=== PATIENT | female | born 1975 | race Caucasian/White ===

== ENCOUNTER → 2017-06-05 | Outpatient (CLI) | payer OTHER ==
[~2017-06-05] MED LIST: DIVA500T2 PO; LACO200T; LEVE100020 PO
[2017-06-05 07:43] LABS: ALBUMIN 4.3 g/dL (3.4-5.0); ANION GAP 7 mmol/L (5-15); BASOPHILS # (AUTO) 0.05 x10^3/uL (0-0.1); BASOPHILS % (AUTO) 2 % (0-1); CALCIUM 8.8 mg/dL (8.5-10.1); CHLORIDE 109 mmol/L (98-107); EOSINOPHILS # (AUTO) 0.08 x10^3/uL (0-0.4); EOSINOPHILS % (AUTO) 3 % (1-7); LYMPHOCYTES # (AUTO) 1.19 x10^3/uL (1-3.4); LYMPHOCYTES % (AUTO) 38 % (22-44); MD NO; MEAN CORPUSCULAR HGB CONC 32.1 g/dL (32.4-35.8); MEAN PLATELET VOLUME 7.9 fL (7.4-10.4); MONOCYTES # (AUTO) 0.19 x10^3/uL (0.2-0.8); MONOCYTES % (AUTO) 6 % (2-9); NEUTROPHILS # (AUTO) 1.62 x10^3/uL (1.8-6.8); NEUTROPHILS % (AUTO) 52 % (42-75); PLATELET COUNT 300 x10^3/uL (130-400); RED BLOOD COUNT 4.03 x10^6/uL (3.82-5.3)
[2017-06-05 07:48] LABS: ALANINE AMINOTRANSFERASE 25 U/L (12-78); ALKALINE PHOSPHATASE 44 U/L (45-117); BILIRUBIN,TOTAL 0.3 mg/dL (0.2-1.0); CHOL/HDL RATIO 2.2; CHOLESTEROL, TOTAL 202 mg/dL (140-239); CREATININE 0.99 mg/dL (0.55-1.02); HDL CHOL % 45 % (28-40); HDL CHOLESTEROL (DIRECT) 90 mg/dL (40-60); LDL CHOLESTEROL,CALCULATED 104 mg/dL (54-169); LDL/HDL RATIO 1.2 (0.5-3.0); TOTAL PROTEIN 7.5 g/dL (6.4-8.2); TRIGLYCERIDES 40 mg/dL (50-200); VLDL CHOLESTEROL 8 mg/dL (0-25)
[2017-06-05 10:10] LABS: HEMOGLOBIN A1C 5.5 % (4.2-6.3)
== END | disposition home or self-care (01) ==
LOC: LAB 07:12
PROVIDERS: ATTEND Nurse Practitioner
DX: Z13.220 Encounter for screening for lipoid disorders (principal); E07.9 Disorder of thyroid, unspecified; R79.9 Abnormal finding of blood chemistry, unspecified
CPT/HCPCS: 36415; 80053; 80061; 82306; 83036; 85025

== ENCOUNTER → 2017-07-20 | Outpatient (CLI) | payer OTHER ==
[2017-07-20 07:59] LABS: BASOPHILS # (AUTO) 0.06 x10^3/uL (0-0.1); BASOPHILS % (AUTO) 2 % (0-1); EOSINOPHILS # (AUTO) 0.11 x10^3/uL (0-0.4); EOSINOPHILS % (AUTO) 3 % (1-7); LYMPHOCYTES # (AUTO) 1.48 x10^3/uL (1-3.4); LYMPHOCYTES % (AUTO) 41 % (22-44); MD NO; MEAN CORPUSCULAR HEMOGLOBIN 25.9 pg (27.0-34.8); MEAN CORPUSCULAR HGB CONC 31.9 g/dL (32.4-35.8); MEAN CORPUSCULAR VOLUME 81.1 fL (80-100); MEAN PLATELET VOLUME 8.1 fL (7.4-10.4); MONOCYTES # (AUTO) 0.32 x10^3/uL (0.2-0.8); MONOCYTES % (AUTO) 9 % (2-9); NEUTROPHILS # (AUTO) 1.67 x10^3/uL (1.8-6.8); NEUTROPHILS % (AUTO) 46 % (42-75); PLATELET COUNT 316 x10^3/uL (130-400); RED CELL DISTRIBUTION WIDTH 16.6 % (9.6-15.2)
[2017-07-20 08:02] LABS: % IRON SATURATION 12 % (20-55); IRON LEVEL 55 mcg/dL (50-170); TOTAL IRON BINDING CAPACITY 455 mcg/dL (250-450)
== END | disposition home or self-care (01) ==
LOC: LAB 07:16
PROVIDERS: ATTEND Internal Medicine
DX: D64.9 Anemia, unspecified (principal)
CPT/HCPCS: 36415; 82728; 83540; 83550; 85025

== ENCOUNTER → 2017-07-22 | Outpatient (CLI) | payer OTHER | END | disposition home or self-care (01) | LOC: CFH 13:50 | PROVIDERS: ATTEND Obstetrics & Gynecology Maternal & Fetal Medicine | DX: Z12.31 Encounter for screening mammogram for malignant neoplasm of breast (principal) | CPT/HCPCS: 77063; 77067 ==

== ENCOUNTER 2017-07-28 09:24 | Observation (INO) | payer OTHER ==
[~2017-07-28] VITALS: Ht 165.1 cm; Wt 75.9 kg
[2017-07-28 10:03] LABS: BASOPHILS # (AUTO) 0.06 x10^3/uL (0-0.1); BASOPHILS % (AUTO) 1 % (0-1); EOSINOPHILS # (AUTO) 0.09 x10^3/uL (0-0.4); EOSINOPHILS % (AUTO) 2 % (1-7); LYMPHOCYTES # (AUTO) 1.46 x10^3/uL (1-3.4); LYMPHOCYTES % (AUTO) 32 % (22-44); MD NO; MEAN CORPUSCULAR HEMOGLOBIN 25.9 pg (27.0-34.8); MEAN CORPUSCULAR HGB CONC 31.6 g/dL (32.4-35.8); MEAN CORPUSCULAR VOLUME 81.9 fL (80-100); MONOCYTES # (AUTO) 0.25 x10^3/uL (0.2-0.8); MONOCYTES % (AUTO) 6 % (2-9); NEUTROPHILS # (AUTO) 2.65 x10^3/uL (1.8-6.8); NEUTROPHILS % (AUTO) 59 % (42-75); PLATELET COUNT 311 x10^3/uL (130-400); RED BLOOD COUNT 4.43 x10^6/uL (3.82-5.3); RED CELL DISTRIBUTION WIDTH 16.2 % (9.6-15.2)
[2017-07-28 10:07] LABS: INTERNATIONAL NORMALIZED RATIO 1.06 (0.93-1.1); PROTHROMBIN TIME 10.9 Seconds (9.6-11.5)
[2017-07-28] MEDS ORDERED: ASPIRIN 81 MG TABLET EC ONE (10:17)
[2017-07-28] MEDS ORDERED: ASPIRIN 81 MG TABLET CHEW ONE (10:18)
[2017-07-28] MEDS ORDERED: LEVE100020 PO (10:24)
[2017-07-28] MEDS ORDERED: DULO20CA45 PO (10:24)
[2017-07-28] MEDS ORDERED: ZONI100C2 PO ×2 (10:24)
[2017-07-28] MEDS ORDERED: BUSP5TAB2 PO (10:24)
[2017-07-28] MEDS ORDERED: LAMO100T5 PO ×3 (10:24)
[2017-07-28] MEDS ORDERED: CLOB10TA PO (10:24)
[2017-07-28] MEDS ORDERED: ASPIRIN 325 MG TABLET EC PO ONE (10:30)
[2017-07-28] MEDS ORDERED: LORazepam 2 MG/ML, 1ML IVPush PRN (12:30)
[2017-07-28] MEDS ORDERED: ACETAMINOPHEN 325 MG TABLET PO PRN (12:30)
[2017-07-28] MEDS ORDERED: ENOXAPARIN 40 MG/0.4 ML SQ SCH (12:30)
[2017-07-28] MEDS ORDERED: ONDANSETRON 2MG/ML, 2ML IVPush PRN (12:30)
[2017-07-28] MEDS ORDERED: ENOXAPARIN 40 MG/0.4 ML ONE (12:37)
[2017-07-28] MEDS: SODIUM CHLORIDE 0.9% 1,000 ML IV SCH (12:57)
[2017-07-28 14:48] VITALS: BP 125/83
[2017-07-28] MEDS ORDERED: ZONISAMIDE 50 MG CAPSULE PO SCH ×2 (15:00→21:00)
[2017-07-28] MEDS ORDERED: LAMOTRIGINE 100 MG TABLET PO SCH ×2 (16:00→21:00)
[2017-07-28 19:48] VITALS: BP 107/66
[2017-07-28] MEDS: LEVETIRACETAM 500 MG TABLET PO SCH (20:19)
[2017-07-28] MEDS: BUSPIRONE 5 MG TABLET PO SCH (20:20)
[2017-07-28] MEDS ORDERED: CLOBAZAM 10 MG HOMEMEDPO SCH (21:00)
[2017-07-28] MEDS ORDERED: DULOXETINE 20 MG CAPSULE.DR PO SCH (21:00)
[2017-07-29 02:30] VITALS: BP 105/64
[2017-07-29] MEDS: SODIUM CHLORIDE 0.9% 1,000 ML IV SCH (04:22)
[2017-07-29 05:35] LABS: ANION GAP 7 mmol/L (5-15); CALCIUM 8.1 mg/dL (8.5-10.1); CHLORIDE 112 mmol/L (98-107)
[2017-07-29 05:37] LABS: BASOPHILS # (AUTO) 0.07 x10^3/uL (0-0.1); BASOPHILS % (AUTO) 2 % (0-1); EOSINOPHILS # (AUTO) 0.13 x10^3/uL (0-0.4); EOSINOPHILS % (AUTO) 4 % (1-7); LYMPHOCYTES # (AUTO) 1.47 x10^3/uL (1-3.4); LYMPHOCYTES % (AUTO) 42 % (22-44); MD NO; MEAN CORPUSCULAR HEMOGLOBIN 26.3 pg (27.0-34.8); MEAN CORPUSCULAR HGB CONC 32.2 g/dL (32.4-35.8); MEAN CORPUSCULAR VOLUME 81.6 fL (80-100); MEAN PLATELET VOLUME 7.8 fL (7.4-10.4); MONOCYTES # (AUTO) 0.29 x10^3/uL (0.2-0.8); MONOCYTES % (AUTO) 8 % (2-9); NEUTROPHILS # (AUTO) 1.56 x10^3/uL (1.8-6.8); NEUTROPHILS % (AUTO) 44 % (42-75); PLATELET COUNT 257 x10^3/uL (130-400); RED BLOOD COUNT 3.68 x10^6/uL (3.82-5.3); RED CELL DISTRIBUTION WIDTH 15.9 % (9.6-15.2)
[2017-07-29 06:56] VITALS: BP 116/71
[2017-07-29] MEDS: BUSPIRONE 5 MG TABLET PO SCH (08:46)
[2017-07-29] MEDS: LEVETIRACETAM 500 MG TABLET PO SCH (08:46)
[2017-07-29] MEDS ORDERED: LAMOTRIGINE 200 MG TABLET PO SCH (09:00)
[2017-07-29] MEDS ORDERED: LAMOTRIGINE 25 MG TABLET PO SCH (09:00)
[2017-07-29] MEDS ORDERED: CLOB10TA PO (09:52)
[2017-07-29] MEDS ORDERED: ZONISAMIDE HOMEMEDPO (09:52)
[2017-07-29] MEDS ORDERED: LAMOTRIGINE 300 MG PO SCH (20:00)
[2017-07-29] MEDS ORDERED: ZONISAMIDE HOMEMEDPO SCH (20:00)
== END 2017-07-29 11:40 | disposition home or self-care (01) ==
LOC: ED 09:38 → INTOOBSV 11:21 → EDIP 11:21 → 4WST 14:09
PROVIDERS: ADMIT Internal Medicine; ATTEND Internal Medicine
DX: G40.909 Epilepsy, unspecified, not intractable, without status epilepticus (principal); D64.9 Anemia, unspecified; I10 Essential (primary) hypertension; I16.0 Hypertensive urgency; G47.00 Insomnia, unspecified; G45.9 Transient cerebral ischemic attack, unspecified; Z79.82 Long term (current) use of aspirin
CPT/HCPCS: 36415; 70450; 80047; 80048; 83735; 84703; 85025; 85610; 85730; 93005; 96360; 96361; 96372; 99285; G0378; J1650; J7030

== ENCOUNTER → 2017-10-06 | Outpatient (CLI) | payer OTHER ==
[~2017-10-06] MED LIST changes: +BUSP5TAB2 PO; +CLOB10TA PO; +DULO20CA45 PO; +LAMO100T5 PO; +ZONI100C2 PO; +ZONISAMIDE HOMEMEDPO
[2017-10-06 07:45] LABS: BASOPHILS # (AUTO) 0.03 x10^3/uL (0-0.1); BASOPHILS % (AUTO) 1 % (0-1); EOSINOPHILS # (AUTO) 0.11 x10^3/uL (0-0.4); EOSINOPHILS % (AUTO) 3 % (1-7); LYMPHOCYTES # (AUTO) 1.17 x10^3/uL (1-3.4); LYMPHOCYTES % (AUTO) 30 % (22-44); MD NO; MEAN CORPUSCULAR HEMOGLOBIN 29.2 pg (27.0-34.8); MEAN CORPUSCULAR VOLUME 88.5 fL (80-100); MEAN PLATELET VOLUME 7.8 fL (7.4-10.4); MONOCYTES # (AUTO) 0.28 x10^3/uL (0.2-0.8); MONOCYTES % (AUTO) 7 % (2-9); NEUTROPHILS # (AUTO) 2.36 x10^3/uL (1.8-6.8); NEUTROPHILS % (AUTO) 60 % (42-75); PLATELET COUNT 229 x10^3/uL (130-400); RED BLOOD COUNT 4.48 x10^6/uL (3.82-5.3); RED CELL DISTRIBUTION WIDTH 19.2 % (9.6-15.2)
== END | disposition home or self-care (01) ==
LOC: LAB 07:22
PROVIDERS: ATTEND Internal Medicine
DX: D64.9 Anemia, unspecified (principal); G40.909 Epilepsy, unspecified, not intractable, without status epilepticus
CPT/HCPCS: 36415; 80175; 82728; 83540; 83550; 85025

== ENCOUNTER → 2017-10-14 | Outpatient (CLI) | payer OTHER | END | disposition home or self-care (01) | LOC: CVU 09:42 | PROVIDERS: ATTEND Specialist | DX: I65.23 Occlusion and stenosis of bilateral carotid arteries (principal); G40.901 Epilepsy, unspecified, not intractable, with status epilepticus | CPT/HCPCS: 93306; 93880 ==

== ENCOUNTER → 2017-11-09 | Outpatient (CLI) | payer OTHER | END | disposition home or self-care (01) | LOC: CFH 12:38 | PROVIDERS: ATTEND Nurse Practitioner Family | DX: R07.89 Other chest pain (principal) | CPT/HCPCS: 71046 ==

== ENCOUNTER → 2017-11-16 | Outpatient (CLI) | payer OTHER ==
[2017-11-16 07:45] LABS: BASOPHILS # (AUTO) 0.03 x10^3/uL (0-0.1); BASOPHILS % (AUTO) 1 % (0-1); EOSINOPHILS % (AUTO) 3 % (1-7); LYMPHOCYTES # (AUTO) 1.45 x10^3/uL (1-3.4); LYMPHOCYTES % (AUTO) 44 % (22-44); MD NO; MEAN CORPUSCULAR HEMOGLOBIN 30.4 pg (27.0-34.8); MEAN CORPUSCULAR HGB CONC 33.3 g/dL (32.4-35.8); MEAN CORPUSCULAR VOLUME 91.3 fL (80-100); MEAN PLATELET VOLUME 7.7 fL (7.4-10.4); MONOCYTES # (AUTO) 0.28 x10^3/uL (0.2-0.8); MONOCYTES % (AUTO) 9 % (2-9); NEUTROPHILS # (AUTO) 1.44 x10^3/uL (1.8-6.8); NEUTROPHILS % (AUTO) 44 % (42-75); PLATELET COUNT 260 x10^3/uL (130-400); RED BLOOD COUNT 4.14 x10^6/uL (3.82-5.3); RED CELL DISTRIBUTION WIDTH 14.3 % (9.6-15.2)
[2017-11-16 08:00] LABS: % IRON SATURATION 25 % (20-55); IRON LEVEL 85 mcg/dL (50-170); TOTAL IRON BINDING CAPACITY 346 mcg/dL (250-450)
== END | disposition home or self-care (01) ==
LOC: LAB 07:09
PROVIDERS: ATTEND Internal Medicine
DX: D50.0 Iron deficiency anemia secondary to blood loss (chronic) (principal); K21.9 Gastro-esophageal reflux disease without esophagitis; R06.02 Shortness of breath
CPT/HCPCS: 36415; 83540; 83550; 85025

== ENCOUNTER → 2017-11-24 | Outpatient (CLI) | payer OTHER ==
[~2017-11-24] MED LIST changes: +OMNIPAQUE 350 MG/ML, 100ML BOTTLE ONE
== END | disposition home or self-care (01) ==
LOC: RAD 15:14
PROVIDERS: ATTEND Internal Medicine
DX: R06.02 Shortness of breath (principal)
CPT/HCPCS: 71275; Q9967

== ENCOUNTER 2019-09-27 03:18 | Emergency (ER) | payer OTHER ==
[~2019-09-27] VITALS: Ht 165.1 cm; Wt 74.5 kg
[~2019-09-27 03:18] MED LIST changes: -OMNIPAQUE 350 MG/ML, 100ML BOTTLE ONE; -ZONI100C2 PO; +ZONI100C29 PO
--- NOTE | 2019-09-27 03:42 | NUR ---
THIS PT IS COMING FROM HOME, WHERE SHE AWOKE TODAY AT APPROX 0230 FROM HER SLEEP WITH CP/ PRESSURE "THAT FEELS LIKE SOMETHING IS SITTING ON MY CHEST." PT CONNECTED TO CARDIAC, BP AND O2 MONITORS, CALL LIGHT IN REACH, SIDE RAILS UP X2, BELONGINGS IN REACH, AT BEDSIDE.
[2019-09-27] MEDS ORDERED: ASPIRIN 81 MG TABLET CHEW ONE (03:45)
--- NOTE | 2019-09-27 03:51 | NUR ---
ERP TO BEDSIDE.
[2019-09-27 03:57] LABS: BASOPHILS # (AUTO) 0.04 x10^3/uL (0-0.1); BASOPHILS % (AUTO) 1 % (0-1); EOSINOPHILS % (AUTO) 3 % (1-7); LYMPHOCYTES # (AUTO) 1.62 x10^3/uL (1-3.4); LYMPHOCYTES % (AUTO) 44 % (22-44); MD NO; MEAN CORPUSCULAR HEMOGLOBIN 24.6 pg (27.0-34.8); MEAN CORPUSCULAR VOLUME 79.4 fL (80-100); MEAN PLATELET VOLUME 7.8 fL (7.4-10.4); MONOCYTES # (AUTO) 0.28 x10^3/uL (0.2-0.8); MONOCYTES % (AUTO) 8 % (2-9); NEUTROPHILS # (AUTO) 1.69 x10^3/uL (1.8-6.8); NEUTROPHILS % (AUTO) 45 % (42-75); PLATELET COUNT 286 x10^3/uL (130-400); RED CELL DISTRIBUTION WIDTH 15.9 % (9.6-15.2)
[2019-09-27] MEDS ORDERED: NITROGLYCERIN SINGLE TAB 0.4 MG SL ONE ×2 (04:00→04:03)
[2019-09-27] MEDS ORDERED: ASPIRIN 81 MG TABLET CHEW PO ONE (04:00)
[2019-09-27] MEDS ORDERED: ACETAMINOPHEN 500 MG TABLET PO ONE (04:00)
[2019-09-27] MEDS ORDERED: NITROGLYCERIN/D5W PMX 0 ML ONE (04:01)
[2019-09-27] MEDS ORDERED: ACETAMINOPHEN 500 MG TABLET ONE (04:01)
[2019-09-27 04:09] LABS: ALBUMIN 4.5 g/dL (3.4-5.0); ANION GAP 6 mmol/L (5-15); CALCIUM 8.4 mg/dL (8.5-10.1); CHLORIDE 107 mmol/L (98-107); CREATININE 0.86 mg/dL (0.55-1.02)
[2019-09-27 04:13] LABS: TROPONIN I < 0.015 ng/mL (0.000-0.045)
--- NOTE | 2019-09-27 04:26 | NUR ---
PT SITTING IN BED, NO SIGNS OF DISTRESS, STATES SHE'S FEELS SOME RELIEF WITH THE NITRO. PT STATES "I THINK IT'S JUST MY ANXIETY BUT I WANTED TO GET IT CHECKED OUT."
--- NOTE | 2019-09-27 04:55 | NUR ---
PT AMBULATORY AROUND UNIT, RA SATURATION REMAINS 99%. PT'S HR FROM 48-52 AT REST UP TO 62 WITH WALKING. PT STATES SHE FELT CHEST PRESSURE AGAIN AFTER ROADTEST. PT UPDATED ON POC THAT INCLUDES WAITING FOR 2 HOUR TROPONIN REDRAW.
--- NOTE | 2019-09-27 05:31 | NUR ---
PT SITTING IN BED, REQUESTED VOMIT BAG, DENIED WANTING MEDICATION. ALL NEEDS MET AT THIS TIME.
--- NOTE | 2019-09-27 05:53 | NUR ---
PT STATES NAUSEA RESOLVED. PROVIDED WITH WARM BLANKET. ALL NEEDS MET AT THIS TIME.
[2019-09-27 06:13] LABS: TROPONIN I < 0.015 ng/mL (0.000-0.045)
--- NOTE | 2019-09-27 06:36 | NUR ---
ERP BACK TO BEDSIDE TO DISCUSS POC WITH PT.
[2019-09-27 06:51] VITALS: BP 122/78
== END 2019-09-27 06:56 | disposition home or self-care (01) ==
LOC: ED 04:06
DX: R07.89 Other chest pain (principal); R06.00 Dyspnea, unspecified; R11.0 Nausea; G40.909 Epilepsy, unspecified, not intractable, without status epilepticus
CPT/HCPCS: 36415; 71045; 80048; 82040; 83880; 84484; 85025; 85379; 93005; 99285

== ENCOUNTER 2020-04-29 11:59 | Emergency (ER) | payer OTHER ==
[~2020-04-29] VITALS: Ht 165.1 cm; Wt 75.1 kg
[2020-04-29] MEDS ORDERED: SODIUM CHLORIDE FLUSH 10ML SYR IVF ONE (13:00)
[2020-04-29] MEDS ORDERED: ONDANSETRON 2MG/ML, 2ML IVPush ONE (13:00)
--- NOTE | 2020-04-29 13:03 | NUR ---
PIV STARTED BY RN STUDENT RAVINDER. LABS DRAWN. PT AMBULATED TO THE BR W/ A STEADY GAIT. RESP EVEN AND UNLABORED, ANDREW.
[2020-04-29] MEDS ORDERED: ONDANSETRON 2MG/ML, 2ML ONE (13:05)
[2020-04-29 13:08] LABS: MEAN CORPUSCULAR HEMOGLOBIN 32.6 pg (27.0-34.8); MEAN CORPUSCULAR HGB CONC 33.9 g/dL (32.4-35.8); MEAN PLATELET VOLUME 7.5 fL (7.4-10.4); PLATELET COUNT 244 x10^3/uL (130-400); RED BLOOD COUNT 4.26 x10^6/uL (3.82-5.3); RED CELL DISTRIBUTION WIDTH 12.6 % (9.6-15.2)
--- NOTE | 2020-04-29 13:08 | NUR ---
TYPE AND SCREEN DRAWN OFF ESTABLISHED IV LINE, WITNESSED BY PROJECT MANAGEMENT CONSULTANT.
--- NOTE | 2020-04-29 13:12 | NUR ---
PT MEDICATED PER EMAR. RESTING ON GURNEY W/ CALL LIGHT IN REACH AND SIDE RAILS UPX2. RESP EVEN AND UNLABORED, NADN. FAMILY AT BEDSIDE.
--- NOTE | 2020-04-29 13:22 | NUR ---
PT REQUESTING TO TAKE HOME LAMICTAL PRESCRIBED. OK PER DR.VAN DAO.
[2020-04-29 13:27] LABS: MD YES
[2020-04-29 13:32] LABS: <PLATELET ESTIMATE> ADEQUATE; <PLT MORPHOLOGY> NORMAL PLT MORPH; <RBC MORPHOLOGY> NORMAL; BAND#(MANUAL) 0.04 x10^3/uL; BANDS%(MANUAL) 1 % (0-7); LYMPH#(MANUAL) 0.92 x10^3/uL (1-3.4); LYMPHS% (MANUAL) 22 % (22-44); MONOS#(MANUAL) 0.13 x10^3/uL (0.3-2.7); MONOS% (MANUAL) 3 % (2-9); SEG#(MANUAL) 3.11 x10^3/uL (1.8-6.8); SEGS% (MANUAL) 74 % (42-75)
--- NOTE | 2020-04-29 13:32 | NUR ---
"JANKI HAD BLACK STOOLS STARTING YESTERDAY, IM FEELING DIZZY AND BLACKING OUT HAVING BLURRED VISION AND IM REALLY NAUSEATED" PT STATES TAKING IRON SUPPLEMENT FOR IRON DEF. ANEMIA, DENIES CP/SOB. PT DRINKS 1-2 ETOH DAILY. PT IN BED WITH CONT SPO2, BP Q 30 MIN SIDE RAILS UP X2, CALL LIGHT IN REACH. WENT OVER PLAN OF CARE FROM ORDER LIST, AGREES TO POC.
[2020-04-29 14:07] LABS: ANION GAP 4 mmol/L (5-15); CALCIUM 7.8 mg/dL (8.5-10.1); CHLORIDE 104 mmol/L (98-107)
[2020-04-29 14:11] LABS: % IRON SATURATION 49 % (20-55); ALANINE AMINOTRANSFERASE 22 U/L (12-78); ALKALINE PHOSPHATASE 48 U/L (45-117); BILIRUBIN,TOTAL 0.3 mg/dL (0.2-1.0); CREATININE 0.87 mg/dL (0.55-1.02); IRON LEVEL 156 mcg/dL (50-170); TOTAL IRON BINDING CAPACITY 318 mcg/dL (250-450); TOTAL PROTEIN 6.7 g/dL (6.4-8.2); TRANSFERRIN 239 mg/dL (200-360)
[2020-04-29 15:00] VITALS: BP 106/63
[2020-04-29] MEDS ORDERED: PANTOPRAZOLE 40 MG IV IVPush ONE (15:00)
[2020-04-29] MEDS ORDERED: PANTOPRAZOLE 40 MG IV ONE (15:12)
[2020-04-29] MEDS ORDERED: ACETAMINOPHEN 500 MG TABLET ONE (15:52)
[2020-04-29] MEDS ORDERED: ACETAMINOPHEN 500 MG TABLET PO ONE (16:00)
== END 2020-04-29 16:02 | disposition home or self-care (01) ==
LOC: ED 12:23
DX: R55 Syncope and collapse (principal); R11.0 Nausea; G40.909 Epilepsy, unspecified, not intractable, without status epilepticus
CPT/HCPCS: 80053; 82728; 82962; 83540; 83550; 83735; 84466; 85025; 86850; 86900; 93005; 96374; 96375; 99284; C9113; J2405

== ENCOUNTER 2020-10-05 07:52 | Outpatient (CLI) | payer OTHER | END 2020-10-05 23:59 | disposition home or self-care (01) | LOC: LAB 07:52 | PROVIDERS: ATTEND Internal Medicine | DX: R11.0 Nausea (principal) ==

== ENCOUNTER → 2020-10-31 | Outpatient (CLI) | payer OTHER ==
[~2020-10-31] MED LIST changes: +SINCALIDE (KINEVAC) 5 MCG ONE
== END | disposition home or self-care (01) ==
LOC: RAD 12:41
PROVIDERS: ATTEND Internal Medicine
DX: K82.8 Other specified diseases of gallbladder (principal); R11.0 Nausea; R94.5 Abnormal results of liver function studies
CPT/HCPCS: 78227; A9537; J2805